=== PATIENT | female | born 1980 | race Caucasian/White ===

== ENCOUNTER 2024-02-13 12:55 | Outpatient (CLI) | payer BC ==
[2024-02-14 04:12] LABS: HSV 2 IGG TYPE SPEC <0.91 index (0.00-0.90)
== END 2024-02-13 12:56 | disposition home or self-care (01) ==
LOC: LAB.S 12:55
PROVIDERS: ATTEND Registered Nurse
DX: B00.1 Herpesviral vesicular dermatitis (principal); K13.0 Diseases of lips
CPT/HCPCS: 36415; 86695; 86696